=== PATIENT | male | born 1965 | race African-American/Black ===

== ENCOUNTER → 2018-08-23 | Outpatient (CLI) | payer MEDICARE, OTHER ==
--- NOTE | 2018-08-24 06:30 | CT ---
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 Coronal and sagittal r econstructions performed. 3-D reconstructions generated on a dedicated independent workstation. CT DLP: 503 mGycm Automated exposure control for dose reduction was used. FINDINGS: Reverse left total shoulder arthroplasty is demonstrated. Overall alignment of the shoulder arthropla sty appears appropriate. Of note, the tip of the superior screw of the glenosphere component extends into the region of the miller prascapular notch. Excessive metal hardware artifacts are present. No significant periprosthetic luce ncy or definite periprosthetic fracture seen. There are 2 cerclage wires around the humeral stem component. Some chronic appearing bony irregulari ty in this region along the cortex of the humeral shaft here. There is some bony hyperostosis and chronic appearing fragmentation along the inferior glenoid, subja cent to the glenosphere component that comes into close proximity to the medial margin of the proxima l humeral stem component. Some chronic bony fragmentation anterior to the AC joint vs loose bodies, possibly post surgical. Note, the supraspinatus muscle bulk appears relatively maintained, refer to axial image 18 for exampl e. Excessive metal hardware artifacts for adequate assessment of the infraspinatus tendon. IMPRESSION: 1. REVERSE LEFT TOTAL SHOULDER ARTHROPLASTY. OVERALL ALIGNMENT APPEARS APPROPRIATE. 2. THE TIP OF THE SUPERIOR SCREW OF THE GLENOSPHERE COMPONENT EXTENDS INTO THE REGION OF THE SUPRASCA PULAR NOTCH. THIS IS OF QUESTIONABLE CLINICAL SIGNIFICANCE AND SHOULD BE CORRELATED CLINICALLY. 3. SOME BONY HYPEROSTOSIS AND CHRONIC APPEARING FRAGMENTATION ALONG THE INFERIOR ASPECT OF THE GLENOI D MAY COME INTO CONTACT WITH THE PROXIMAL HUMERAL STEM COMPONENT WHEN THE ARM IS FULLY ADDUCTED. 4. NO PERIPROSTHETIC FRACTURE OR EVIDENT LOOSENING.
== END | disposition home or self-care (01) ==
LOC: RADCTMAIN 14:27
PROVIDERS: ATTEND Orthopaedic Surgery
DX: M85.812 Other specified disorders of bone density and structure, left shoulder (principal); Z96.612 Presence of left artificial shoulder joint